=== PATIENT | male | born 1940 | race Caucasian/White ===

== ENCOUNTER 2017-01-21 05:17 | Inpatient (IN) | payer MEDICARE ==
[2017-01-21] VITALS (7 sets, daily range): BP systolic 133; BP diastolic 77; PULSE 58–84; RESP 16; TEMP 98.1; O2SAT 96–100
[~2017-01-21] VITALS: Ht 182.9 cm; Wt 99.3 kg
[~2017-01-21 05:17] MED LIST: ATOR10TA15 PO; MULT1TAB PO; NIFE30TA61 PO; OMEGCAP19 PO; OMEP40CA2 PO; VITA1000 PO
[2017-01-21] MEDS ORDERED: METOPROLOL TARTRATE 25 MG TAB PO PRN (05:45)
[2017-01-21] MEDS ORDERED: INSULIN HUMAN REGULAR 1,000 UNITS/10 ML VIAL SQ PRN (05:45)
[2017-01-21] MEDS ORDERED: LACTATED RINGER'S 1000 ML IV PRN (05:45)
[2017-01-21] MEDS ORDERED: ceFAZolin 2 GM PREMIX 50 ML IV SCH (05:45)
[2017-01-21] MEDS ORDERED: SODIUM CHLORID 0.9% 500 ML IV PRN (05:45)
[2017-01-21] MEDS ORDERED: POVIDONE IODINE 5% (ANTISEPSIS KIT) 4 APPLICATIONS EACH NARE PRN (05:45)
[2017-01-21] MEDS ORDERED: CHLORHEXIDINE GLUCONATE 2 % 1 PACK (2 CLOTHS) TOPICAL PRN (05:45)
[2017-01-21] MEDS ORDERED: HYDROmorphone HCL PF 2 MG/ML VIAL ONE (06:47)
[2017-01-21] MEDS ORDERED: ACETAMINOPHEN 1000 MG/100 ML VIAL IV ONE (06:47)
[2017-01-21 06:57] LABS: INTERNATIONAL NORMALIZED RATIO 0.9 RATIO; PROTHROMBIN TIME - PATIENT 10.4 SEC (9.8-11.6)
[2017-01-21] MEDS ORDERED: MIDAZOLAM HCL 2 MG/2 ML VIAL ONE (07:26)
[2017-01-21] MEDS ORDERED: DEXAMETHASONE SOD PHOS 4 MG/ML VIAL ONE (07:26)
[2017-01-21] MEDS ORDERED: fentaNYL CITRATE 250 MCG/5 ML AMP ONE ×2 (08:56)
[2017-01-21] MEDS ORDERED: SUFentanil INJ 250 MCG/5 ML AMP ONE (10:03)
[2017-01-21] MEDS ORDERED: VASOPRESSIN INJ 20 UNITS/ML VIAL IV ONE (12:00)
[2017-01-21] MEDS ORDERED: ePHEDrine/NS 25 MG/5 ML SYR IV ONE (12:00)
[2017-01-21] MEDS ORDERED: ONDANSETRON HCL 4 MG/2 ML VIAL IV PUSH ONE (12:00)
[2017-01-21] MEDS ORDERED: PROPOFOL 200 MG/20 ML AMP IV ONE (12:00)
[2017-01-21] MEDS ORDERED: SUFentanil INJ 250 MCG/5 ML AMP IV ONE (12:00)
[2017-01-21] MEDS ORDERED: LACTATED RINGER'S 1000 ML INJ 5,000 ML IV ONE (12:00)
[2017-01-21] MEDS ORDERED: NEOSTIGMINE 3 MG/3 ML SYR IV ONE (12:00)
[2017-01-21] MEDS ORDERED: ceFAZolin 2 GM/50 ML BAG IV ONE (12:00)
[2017-01-21] MEDS ORDERED: PHENYLEPH/NS 1000 MCG/10 ML SYR IV ONE (12:00)
[2017-01-21] MEDS ORDERED: SODIUM CHLORID 0.9% 500 ML INJ 500 ML IV ONE (12:00)
[2017-01-21] MEDS ORDERED: ALBUMIN HUMAN 25% 12.5 GM/50 ML BAGP IV ONE (12:00)
[2017-01-21] MEDS ORDERED: NORMOSOL R INJ 1,000 ML IV ONE (12:00)
[2017-01-21 13:53] LABS: AUTOMATED NEUTROPHIL # 18.5 TH/MM3 (1.8-7.7); BASOPHIL % 0.1 % (0.0-2.0); HEMO FLAGS DIFF FINAL; LYMPH % 5.5 % (9.0-44.0); LYMPHOCYTE # 1.1 TH/MM3 (1.0-4.8); MEAN CELL VOLUME 90.7 FL (80.0-100.0); MEAN CORPUSCULAR HEMOGLOBIN 30.2 PG (27.0-34.0); MEAN CORPUSCULAR HGB CONC 33.3 % (32.0-36.0); MONO % 4.8 % (0.0-8.0); NEUT % 89.6 % (16.0-70.0); PLATELET COUNT 160 TH/MM3 (150-450); RED BLOOD COUNT 3.41 MIL/MM3 (4.50-5.90); RED CELL DISTRIBUTION WIDTH 14.3 % (11.6-17.2); WHITE BLOOD COUNT 20.6 TH/MM3 (4.0-11.0)
[2017-01-21] MEDS ORDERED: *morphine SULFATE 8 MG/ML PERIprocedure ONLY ONE (14:05)
[2017-01-21 14:13] LABS: BICARBONATE 25.2 MEQ/L (21.0-32.0); POTASSIUM 4.8 MEQ/L (3.5-5.1)
[2017-01-21] MEDS ORDERED: *ONDANSETRON 4 MG VIAL PERIprocedural Use ONLY ONE (14:25)
[2017-01-21 14:34] LABS: CALCIUM-PROTEIN CORRECTED 8.9 MG/DL (8.5-10.1)
[2017-01-21] MEDS: SODIUM CHLOR 0.9% 1000 ML INJ 1,000 ML IV SCH ×2 (15:00→23:17)
[2017-01-21] MEDS: ACETAMINOPHEN 1000 MG/100 ML VIAL IV SCH ×2 (15:00→20:12)
--- NOTE | 2017-01-21 15:13 | RADRPT ---
EXAM DATE/TIME: 01/21/2017 14:14 [place] COMPARISON: No previous studies available for comparison. INDICATIONS : Rule out pneumothorax. Post right partial necphrectomy. MEDICAL HISTORY : Hypertension. Gastroesophageal reflux disease. Barretts Syndrome. SURGICAL HISTORY : Cardiac catherization. Hiatel hernia repair with mesh. ENCOUNTER: Initial ACUITY: 1 day PAIN SCORE: 10/10 LOCATION: Bilateral Abdomen. FINDINGS: Significant subcutaneous emphysema neck and chest without pneumothorax. The heart is enlarged.. Oss eous structures are intact. CONCLUSION: Significant subcutaneous interstitial emphysema is present without pneumothorax. Jony Juárez MD FACR on January 21, 2017 at 15:09 Board Certified Radiologist. This report was verified electronically.
[2017-01-21] MEDS ORDERED: DO NOT ADM ANY ANTICOAGULANT DRUGS PRN (15:15)
[2017-01-21] MEDS ORDERED: *PROMETHAZINE 25 MG/ML VIAL PERIprocedural use ONLY ONE (15:30)
--- NOTE | 2017-01-21 15:39 | PD.CONS ---
[facility] Service Critical Care Medicine Consult Requested By Urological Surgery Reason for Consult Critical care management Primary Care Physician David Richards MD History of Present Illness 76 y/o man with recently diagnosed right superior pole kidney mass underwent robotic right kidney resection today. Preop metastatic workup otherwise clean aside from some bilateral parotid gland uptake felt to be benign disease. A previous admission for cardiac symptoms revealed low normal EF and otherwise normal study aside from trace regurgitation both semilunar valves. Review of Systems Constitutional: DENIES: Diaphoretic episodes, Fatigue, Fever, Weight gain, Weight loss, Chills, Dizziness, Change in appetite, Night Sweats Endocrine: DENIES: Heat/cold intolerance, Polydipsia, Polyuria, Polyphagia Ears, nose, mouth, throat: DENIES: Tinnitus, Hearing loss, Vertigo, Nasal discharge, Oral lesions, Throat pain, Hoarseness, Ear Pain, Running Nose, Epistaxis, Sinus Pain, Toothache, Odynophagia Respiratory: DENIES: Apneas, Cough, Snoring, Wheezing, Hemoptysis, Sputum production, Shortness of breath Cardiovascular: DENIES: Chest pain, Palpitations, Syncope, Dyspnea on Exertion , PND, Lower Extremity Edema, Orthopnea, Claudication Gastrointestinal: COMPLAINS OF: Abdominal pain Integumentary: DENIES: Abnormal pigmentation, Nail changes, Pruritus, Rash Hematologic/lymphatic: DENIES: Bruising, Lymphadenopathy Psychiatric: DENIES: Anxiety, Confusion, Mood changes, Depression, Hallucinations, Agitation, Suicidal Ideation, Homicidal Ideation, Delusions ROS Mild abdominal pain. No chest pain or SOB. Past Family Social History Allergies: Coded Allergies: Tetanus Toxoid (Verified Allergy, Severe, 01/20/17) Uncoded Allergies: CHALK (Allergy, Severe, RASH, 01/20/17) Past Medical History [facility] Past Family Social History Allergies: Coded Allergies: Tetanus Toxoid (Verified Allergy, Severe, 01/20/17) Uncoded Allergies: CHALK (Allergy, Severe, RASH, 01/20/17) Past Medical History PAST SURGICAL HISTORY: Cardiac cath Hernia repair Umbilical hernia repair Left knee surgery in 1995 FAMILY HISTORY: Mr. Patel's mother is : Hypertension; Dementia. Mr. Patel's father at age 66: lung ca. Mr. Patel's maternal grandmother is . His maternal grandfather is . His paternal grandmother is . His paternal grandfather is . Mr. Patel has 1 brother who is alive. He has 1 son who is alive: traumatic brain injury after the fall. He has 1 daughter who is alive. lung cancer. 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 Mr. Patel has never smoked. He drinks occasionally. He consumes 2 drinks/day. Mr. Patel reports the following support systems: lives with spouse, significant other, family, or friends, supportive family/friends willing to assist with needs, and adequate transportation available for expected visits. His diet consists of regular meals. He indicates his activity level as: daily activities. ALLERGIES: Tetanus-Diphtheria Toxoids Td resulting in skin rashes/hives (moderate) MEDICATIONS: Omeprazole 1 Capsule (of 40 mg) Capsule Delayed Release Oral daily Physical Exam Vital Signs Vital Signs Date Time Temp Pulse Resp B/P Pulse Ox O2 Delivery O2 Flow Rate FiO2 01/21/17 06:27 98.1 58 16 133/77 100 Physical Exam Gen: Minimal discomfort. Head: Normal. Neck: Supple. Airway widely patent. Lungs: Clear. Normal excursions, no wheezes or crackles. Heart: NL S1S2, no m,r Abdomen: Voluntary guarding, soft. BS few. Extremities: Warm, well perfused. Neuro: Sleepy but wakes easily. Moves 4 limbs. Conversant. Laboratory Laboratory Tests Test 01/21/17 01/21/17 01/21/17 06:15 06:20 13:31 Blood Type B NEGATIVE B NEGATIVE Prothrombin Time 10.4 Prothromb Time International 0.9 Ratio Antibody Screen NEGATIVE Crossmatch Leukocyte-Reduced Red Blood Cells Blood Bank Comment White Blood Count 20.6 Red Blood Count 3.41 Hemoglobin 10.3 Hematocrit 31.0 Mean Corpuscular Volume 90.7 Mean Corpuscular Hemoglobin 30.2 Mean Corpuscular Hemoglobin 33.3 Concent Red Cell Distribution Width 14.3 Platelet Count 160 Mean Platelet Volume 8.5 Neutrophils (%) (Auto) 89.6 Lymphocytes (%) (Auto) 5.5 Monocytes (%) (Auto) 4.8 Eosinophils (%) (Auto) 0.0 Basophils (%) (Auto) 0.1 Neutrophils # (Auto) 18.5 Lymphocytes # (Auto) 1.1 Monocytes # (Auto) 1.0 Eosinophils # (Auto) 0.0 Basophils # (Auto) 0.0 CBC Comment DIFF FINAL Differential Comment Sodium Level 143 Potassium Level 4.8 Chloride Level 110 Carbon Dioxide Level 25.2 Anion Gap 8 Blood Urea Nitrogen 13 Creatinine 1.43 Estimat Glomerular Filtration 48 Rate Random Glucose 170 Calcium Level 7.1 Protein Corrected Calcium 8.9 Total Protein 3.9 Result Diagram: 01/21/17 1331 01/21/17 1331 Imaging CXR: Subcutaneous air left pectoralis region and neck. Lungs fully expanded, clear. Assessment and Plan Assessment and Plan Assessment: 1. Right superior pole renal mass -> resection. Plan: 1. IS q2h. 2. HOB up 30 degrees. 3. Follow renal function closely. 4. Pulse oximetry. 5. Chemical DVT px. 6. SCDs. Overall impression: Stable hemodynamic and respiratory status following right robotic renal resection. Fernando Hoover MD Jan 21, 2017 15:38
[2017-01-21] MEDS: PANTOPRAZOLE SODIUM 40 MG VIAL IV PUSH SCH (16:47)
[2017-01-21] MEDS: DOCUSATE SODIUM 100 MG CAP PO SCH (20:12)
[2017-01-21] MEDS: MORPHINE SULFATE 4 MG/ML INJ IV PUSH PRN ×2 (20:13→21:47)
[2017-01-21] MEDS: ONDANSETRON HCL 4 MG/2 ML VIAL IV PUSH PRN (20:13)
--- NOTE | 2017-01-21 23:00 | EKG ---
Date Performed: 01/21/2017 Time Performed: 06:48:51 PTAGE: 76 years EKG: SINUS BRADYCARDIA BORDERLINE ECG PREVIOUS TRACING : 08/01/2015 09.37 Compared to prior tracing no significant change DOCTOR: Santos Zhao Interpretating Date/Time 01/21/2017 22:59:18
[2017-01-22] VITALS (14 sets, daily range): BP systolic 113–125; BP diastolic 56–61; PULSE 76–100; RESP 19–22; TEMP 98.2–98.4; O2SAT 92–100
[2017-01-22] MEDS: ACETAMINOPHEN 1000 MG/100 ML VIAL IV SCH ×4 (02:07→19:20)
[2017-01-22 05:03] LABS: HEMATOCRIT 30.4 % (39.0-51.0); MEAN CELL VOLUME 90.3 FL (80.0-100.0); MEAN CORPUSCULAR HEMOGLOBIN 30.3 PG (27.0-34.0); MEAN CORPUSCULAR HGB CONC 33.6 % (32.0-36.0); PLATELET COUNT 166 TH/MM3 (150-450); RED BLOOD COUNT 3.37 MIL/MM3 (4.50-5.90); RED CELL DISTRIBUTION WIDTH 14.1 % (11.6-17.2); REVIEW FLAG FINAL; WHITE BLOOD COUNT 12.1 TH/MM3 (4.0-11.0)
[2017-01-22 05:43] LABS: BICARBONATE 27.6 MEQ/L (21.0-32.0); POTASSIUM 4.7 MEQ/L (3.5-5.1)
[2017-01-22] MEDS: ONDANSETRON HCL 4 MG/2 ML VIAL IV PUSH PRN ×3 (05:53→19:20)
[2017-01-22] MEDS: MORPHINE SULFATE 4 MG/ML INJ IV PUSH PRN ×6 (05:54→23:32)
[2017-01-22 06:03] LABS: CALCIUM-PROTEIN CORRECTED 8.5 MG/DL (8.5-10.1)
[2017-01-22] MEDS: SODIUM CHLOR 0.9% 1000 ML INJ 1,000 ML IV SCH ×3 (07:23→23:56)
--- NOTE | 2017-01-22 08:22 | HHI.CCPN ---
Subjective Remarks/Hospital Course 76 y/o man with recently diagnosed right superior pole kidney mass underwent robotic right kidney resection today. Preop metastatic workup otherwise clean aside from some bilateral parotid gland uptake felt to be benign disease. A previous admission for cardiac symptoms revealed low normal EF and otherwise normal study aside from trace regurgitation both semilunar valves. 01/22: Complains of shoulder pain; probably referred from diaphragm. Remains warm and well perfused. Hgb stable. Objective Vital Signs Date Time Temp Pulse Resp B/P Pulse Ox O2 Delivery O2 Flow Rate FiO2 01/22/17 08:01 92 21 01/22/17 06:00 79 01/21/17 17:50 Room Air 01/21/17 16:06 4.00 01/21/17 15:30 97.4 15 103/59 Intake and Output 01/21/17 01/21/17 01/22/17 08:00 16:00 00:00 Intake Total 6000 ml 877 ml Output Total 1850 ml 275 ml Balance 4150 ml 602 ml Result Diagram: 01/22/17 0424 01/22/17 0417 Imaging CXR: Subcutaneous air left pectoralis region and neck. Lungs fully expanded, clear. Objective Remarks Gen: Shoulder discomfort. Head: Normal. Neck: Supple. Airway widely patent. Lungs: Clear. Normal excursions, no wheezes or crackles. Heart: NL S1S2, no m,r Abdomen: Voluntary guarding, soft. BS present. Extremities: Warm, well perfused. Neuro: Anxious. Conversant. Moves 4 limbs. A/P Assessment and Plan Assessment: 1. Right superior pole renal mass -> resection. Plan: 1. IS q2h. 2. HOB up 30 degrees. 3. Follow renal function closely. 4. Pulse oximetry. 5. Chemical DVT px. 6. SCDs. Overall impression: Stable hemodynamic and respiratory status following right robotic renal resection. Well hydrated. Fernando Hoover MD Jan 22, 2017 08:22
[2017-01-22] MEDS: DOCUSATE SODIUM 100 MG CAP PO SCH ×2 (08:42→19:20)
[2017-01-22] MEDS: PANTOPRAZOLE SODIUM 40 MG VIAL IV PUSH SCH (14:22)
--- NOTE | 2017-01-22 16:59 | HHI.PR ---
Subjective Patient symptoms today c/o crampy abdominal pain. Denies nausea, vomiting flatus. Has not been OOB. Denies CP/SOB/F/C. Has had some sips of water. on CPAP Objective Vital Signs Vital Signs Date Time Temp Pulse Resp B/P Pulse Ox O2 Delivery O2 Flow Rate FiO2 01/22/17 14:00 95 01/22/17 12:00 85 01/22/17 12:00 98.2 76 19 121/61 92 01/22/17 10:00 85 01/22/17 08:01 92 21 01/22/17 08:00 85 01/22/17 06:00 79 01/22/17 04:00 84 01/22/17 02:00 82 01/22/17 00:00 82 01/21/17 22:00 78 01/21/17 20:00 81 01/21/17 19:40 96 21 01/21/17 18:00 84 01/21/17 17:50 95 Room Air Intake & Output 01/22/17 01/22/17 07:00 19:00 Intake Total 2532 ml 1310 ml Output Total 575 ml 350 ml Balance 1957 ml 960 ml Intake Oral 100 ml IV Total 2532 ml 1210 ml Output Urine Total 575 ml 350 ml Result Diagram: 01/22/17 0424 01/22/17 0417 Objective Remarks NAD. A/O x 3 non-labored respirations RRR abd soft, distended, non tender. dressing dry, inc c/d/i Lee draining dark yellow urine Ext NT. no c/c/e Medications and IVs Current Medications Medications (Trade) Dose Ordered Sig/Sukhjinder Route Start Time Stop Time Status Last Admin Lactated Ringer's 1,000 ml @ 30 mls/hr Q24H PRN IV 01/21/17 05:45 01/24/17 05:44 01/21/17 06:30 (NS 500 ml Inj) 500 ml @ 30 mls/hr [id number] PRN IV 01/21/17 05:45 01/24/17 05:44 (Morphine Inj) 4 mg Q3H PRN IV PUSH 01/21/17 13:00 01/22/17 15:28 (Colace) 100 mg BID PO 01/21/17 21:00 01/22/17 08:42 (Ofirmev Inj) 1,000 mg Q6H IV 01/21/17 14:00 01/22/17 14:21 (Roxicodone) 10 mg Q4H PRN PO 01/21/17 13:00 01/22/17 07:23 (Roxicodone) 5 mg Q4H PRN PO 01/21/17 13:00 01/22/17 01:14 (Protonix Inj) 40 mg Q24H IV PUSH 01/21/17 14:00 01/22/17 14:22 Ondansetron HCl 4 mg 4 mg Q6HR PRN IV PUSH 01/21/17 13:00 01/22/17 12:29 Cefazolin Sodium 1000 mg/Sodium Chloride 100 ml @ 200 mls/hr Q8H IV 01/21/17 16:00 01/22/17 15:03 (NS 1000 ml Inj) 1,000 ml @ 125 mls/hr Q8H IV 01/21/17 15:00 01/22/17 15:21 Assessment and Plan Assessment and Plan Right Robotic Radical Nephrectomy, complicated, POD#1 -continue current pain control -Hgb stable. Hemodynamically stable. -On CPAP. Incentive Spirometry. -Cr elevated as expected. UOP picking up. Continue IVF. Likely d/c lee in A.M. -Clears. Zofran as needed. GI prophylaxis. -WBC down. afebrile. On Ancef. -PT/OT. Ambulate TID -likely transfer out of ICU tomorrow. Lenin Cooper MD Jan 22, 2017 16:59
[2017-01-23] VITALS (13 sets, daily range): BP systolic 108–136; BP diastolic 57–70; PULSE 86–108; RESP 17–23; TEMP 98.8–100.8; O2SAT 91–100
[2017-01-23] MEDS: ACETAMINOPHEN 1000 MG/100 ML VIAL IV SCH ×4 (02:11→20:12)
[2017-01-23 04:22] LABS: BICARBONATE 24.9 MEQ/L (21.0-32.0); POTASSIUM 4.5 MEQ/L (3.5-5.1)
[2017-01-23 04:34] LABS: CALCIUM-PROTEIN CORRECTED 7.9 MG/DL (8.5-10.1)
[2017-01-23] MEDS: ONDANSETRON HCL 4 MG/2 ML VIAL IV PUSH PRN ×3 (05:25→20:12)
[2017-01-23] MEDS: MORPHINE SULFATE 4 MG/ML INJ IV PUSH PRN ×3 (05:25→23:19)
[2017-01-23] MEDS: DOCUSATE SODIUM 100 MG CAP PO SCH ×2 (08:16→20:12)
[2017-01-23] MEDS: SODIUM CHLOR 0.9% 1000 ML INJ 1,000 ML IV SCH ×3 (08:16→23:32)
--- NOTE | 2017-01-23 08:43 | HHI.CCPN ---
Subjective Remarks/Hospital Course 76 y/o man with recently diagnosed right superior pole kidney mass underwent robotic right kidney resection today. Preop metastatic workup otherwise clean aside from some bilateral parotid gland uptake felt to be benign disease. A previous admission for cardiac symptoms revealed low normal EF and otherwise normal study aside from trace regurgitation both semilunar valves. 01/22: Complains of shoulder pain; probably referred from diaphragm. Remains warm and well perfused. Hgb stable. 01/23: Breathing comfortably. Creatinine rise is expected after nephrectomy. Patient being mobilized. He has been on protonix iv but is convinced he needs omeprazole po, will change for him. He is concerned about Keith's. Objective Vital Signs Date Time Temp Pulse Resp B/P Pulse Ox O2 Delivery O2 Flow Rate FiO2 01/23/17 06:00 91 01/23/17 04:00 98.9 21 113/57 100 01/22/17 19:14 21 01/21/17 17:50 Room Air 01/21/17 16:06 4.00 Intake and Output 01/22/17 01/22/17 01/23/17 08:00 16:00 00:00 Intake Total 1655 ml 1310 ml 1123 ml Output Total 300 ml 350 ml 275 ml Balance 1355 ml 960 ml 848 ml Result Diagram: 01/22/17 0424 01/23/17 0327 Imaging CXR: Subcutaneous air left pectoralis region and neck. Lungs fully expanded, clear. Objective Remarks Gen: Anxious. Head: Normal. Neck: Supple. Airway widely patent. Lungs: Clear. Normal excursions, no wheezes or crackles. Heart: NL S1S2, no m,r. No JVD. Abdomen: Voluntary guarding minimal, soft. BS present. Extremities: Warm, well perfused. Neuro: Anxious. Conversant. Moves 4 limbs. O X 3. A/P Assessment and Plan Assessment: 1. Right superior pole renal mass -> right radical nephrectomy. Plan: 1. IS q2h. 2. HOB up 30 degrees. 3. Follow renal function closely. 4. Pulse oximetry. 5. Chemical DVT px. 6. SCDs. 7. CPAP hs. Overall impression: Stable hemodynamic and respiratory status following right robotic renal resection. Well hydrated. To floor anytime. Fernando Hoover MD Jan 23, 2017 08:42
[2017-01-23] MEDS: PANTOPRAZOLE SOD 40 MG DELAYED RELEASE TAB PO SCH (08:49)
[2017-01-23] MEDS ORDERED: METOCLOPRAMIDE HCL 10 MG/2 ML VIAL IV ONE (23:00)
[2017-01-24] VITALS (7 sets, daily range): BP systolic 117–175; BP diastolic 63–79; PULSE 81–113; RESP 18–20; TEMP 97.8–99.9; O2SAT 92–99
[2017-01-24] MEDS: ACETAMINOPHEN 1000 MG/100 ML VIAL IV SCH ×4 (01:59→21:22)
[2017-01-24] MEDS: ONDANSETRON HCL 4 MG/2 ML VIAL IV PUSH PRN ×3 (01:59→16:42)
[2017-01-24] MEDS: METOCLOPRAMIDE HCL 10 MG/2 ML VIAL IV PRN ×3 (05:35→21:34)
[2017-01-24 07:59] LABS: BICARBONATE 24.3 MEQ/L (21.0-32.0); POTASSIUM 4.6 MEQ/L (3.5-5.1)
[2017-01-24] MEDS: SODIUM CHLOR 0.9% 1000 ML INJ 1,000 ML IV SCH ×3 (08:14→23:15)
[2017-01-24] MEDS: PANTOPRAZOLE SOD 40 MG DELAYED RELEASE TAB PO SCH (08:18)
[2017-01-24] MEDS: DOCUSATE SODIUM 100 MG CAP PO SCH ×2 (08:20→21:22)
--- NOTE | 2017-01-24 10:19 | HHI.PR ---
Subjective Patient symptoms today nauseous overnight. improved this morning, but still dry heaving. Denies flatus. Up to chair, bathroom. Voiding well. Denies fevers, chills, chest pain, shortness of breath. Objective Vital Signs Vital Signs Date Time Temp Pulse Resp B/P Pulse Ox O2 Delivery O2 Flow Rate FiO2 01/24/17 08:24 97.8 81 18 141/76 99 01/24/17 06:07 83 01/24/17 05:00 98.6 91 18 117/65 94 01/23/17 22:00 99.7 01/23/17 20:00 100.8 108 20 130/70 95 01/23/17 17:56 17 97 01/23/17 16:39 99.0 100 17 136/69 91 01/23/17 14:00 87 01/23/17 12:00 93 01/23/17 12:00 99.2 93 23 108/59 95 01/23/17 11:15 94 Intake & Output 01/24/17 01/24/17 07:00 19:00 Intake Total 1800 ml Output Total 600 ml Balance 1200 ml IV Total 1800 ml Output Urine Total 600 ml Result Diagram: 01/22/17 0424 01/24/17 0557 Objective Remarks NAD. A/O x 3 non-labored respirations RRR abd soft, distended, non tender. dressing dry, inc c/d/i Ext NT. no c/c/e Medications and IVs Current Medications Medications (Trade) Dose Ordered Sig/Sukhjinder Route Start Time Stop Time Status Last Admin (Morphine Inj) 4 mg Q3H PRN IV PUSH 01/21/17 13:00 01/23/17 23:19 (Colace) 100 mg BID PO 01/21/17 21:00 01/23/17 20:12 (Ofirmev Inj) 1,000 mg Q6H IV 01/21/17 14:00 01/24/17 08:19 (Roxicodone) 10 mg Q4H PRN PO 01/21/17 13:00 01/24/17 09:40 (Roxicodone) 5 mg Q4H PRN PO 01/21/17 13:00 01/22/17 20:58 Ondansetron HCl 4 mg 4 mg Q6HR PRN IV PUSH 01/21/17 13:00 01/24/17 09:41 Cefazolin Sodium 1000 mg/Sodium Chloride 100 ml @ 200 mls/hr Q8H IV 01/21/17 16:00 01/24/17 08:14 (NS 1000 ml Inj) 1,000 ml @ 125 mls/hr Q8H IV 01/21/17 15:00 01/24/17 08:14 (Protonix) 40 mg DAILY PO 01/23/17 09:00 01/24/17 08:18 (Reglan Inj) 5 mg Q6H PRN IV 01/23/17 23:00 01/24/17 05:35 Assessment and Plan Assessment and Plan Right Robotic Radical Nephrectomy, complicated, POD#3 -limit narcotic use. -keep NPO for now. Once bowel function improves, will advance diet. -Reglan added for nausea. on Protonix. -Renal Function improving.Voiding on own -Ambulate, IS. Lenin Cooper MD Jan 24, 2017 10:19
[2017-01-24] MEDS: MORPHINE SULFATE 4 MG/ML INJ IV PUSH PRN ×2 (13:02→16:41)
[2017-01-25] VITALS (7 sets, daily range): BP systolic 120–151; BP diastolic 58–80; PULSE 68–107; RESP 18–20; TEMP 97.4–100; O2SAT 91–97
[2017-01-25] MEDS: ACETAMINOPHEN 1000 MG/100 ML VIAL IV SCH ×4 (02:20→21:54)
[2017-01-25] MEDS: METOCLOPRAMIDE HCL 10 MG/2 ML VIAL IV PRN ×3 (02:21→21:54)
[2017-01-25] MEDS: ONDANSETRON HCL 4 MG/2 ML VIAL IV PUSH PRN ×2 (06:17→14:13)
[2017-01-25] MEDS: SODIUM CHLOR 0.9% 1000 ML INJ 1,000 ML IV SCH ×3 (07:00→21:55)
--- NOTE | 2017-01-25 08:36 | HHI.PR ---
Subjective Patient symptoms today less nauseous. Denies flatus. pain controlled. OOB but has not walked hallways. Denies fevers, chills. Objective Vital Signs Vital Signs Date Time Temp Pulse Resp B/P Pulse Ox O2 Delivery O2 Flow Rate FiO2 01/25/17 08:20 99.4 98 20 151/69 93 01/25/17 04:16 100.0 94 20 131/63 95 01/25/17 03:34 90 01/25/17 00:18 98.9 107 20 146/69 91 01/24/17 20:00 99.9 113 20 175/79 96 01/24/17 17:22 82 01/24/17 16:44 98.7 84 19 134/69 97 01/24/17 12:08 98.8 91 19 133/63 92 Intake & Output 01/25/17 01/25/17 06:59 18:59 Intake Total 1537 ml Output Total 800 ml Balance 737 ml Intake Oral 32 ml IV Total 1505 ml Output Urine Total 800 ml # Bowel Movements 0 Result Diagram: 01/22/17 0424 01/24/17 0557 Objective Remarks NAD. A/O x 3 non-labored respirations RRR abd soft, less distended, non tender. inc c/d/i Ext NT. 1+ edema bilaterally, likely dependent. Medications and IVs Current Medications Medications (Trade) Dose Ordered Sig/Sukhjinder Route Start Time Stop Time Status Last Admin (Morphine Inj) 4 mg Q3H PRN IV PUSH 01/21/17 13:00 01/24/17 16:41 (Colace) 100 mg BID PO 01/21/17 21:00 01/24/17 21:22 (Ofirmev Inj) 1,000 mg Q6H IV 01/21/17 14:00 01/25/17 02:20 (Roxicodone) 10 mg Q4H PRN PO 01/21/17 13:00 01/25/17 02:21 (Roxicodone) 5 mg Q4H PRN PO 01/21/17 13:00 01/25/17 06:17 Ondansetron HCl 4 mg 4 mg Q6HR PRN IV PUSH 01/21/17 13:00 01/25/17 06:17 (NS 1000 ml Inj) 1,000 ml @ 125 mls/hr Q8H IV 01/21/17 15:00 01/25/17 07:00 (Protonix) 40 mg DAILY PO 01/23/17 09:00 01/24/17 08:18 (Reglan Inj) 5 mg Q6H PRN IV 01/23/17 23:00 01/25/17 02:21 (Dulcolax Supp) 10 mg ONCE ONCE RECTAL 01/25/17 08:30 01/25/17 08:31 UNV Assessment and Plan Assessment and Plan Right Robotic Radical Nephrectomy, complicated, POD#4 -limit narcotic use. -clear liquids. Dulcolax supp x 1 -Reglan added for nausea. on Protonix. -Renal Function improving.Voiding on own -Ambulate, IS. Lenin Cooper MD Jan 25, 2017 08:36
[2017-01-25] MEDS ORDERED: BISACODYL 10 MG SUPP RECTAL ONE (09:00)
[2017-01-25] MEDS: DOCUSATE SODIUM 100 MG CAP PO SCH ×2 (09:24→21:54)
[2017-01-25] MEDS: PANTOPRAZOLE SOD 40 MG DELAYED RELEASE TAB PO SCH (09:24)
[2017-01-25 10:17] LABS: BICARBONATE 22.6 MEQ/L (21.0-32.0); POTASSIUM 4.3 MEQ/L (3.5-5.1)
[2017-01-25 10:32] LABS: CALCIUM-PROTEIN CORRECTED 8.6 MG/DL (8.5-10.1)
[2017-01-26] VITALS (8 sets, daily range): BP systolic 120–173; BP diastolic 59–79; PULSE 79–106; RESP 20; TEMP 96.6–99.8; O2SAT 96–100
[2017-01-26] MEDS: ONDANSETRON HCL 4 MG/2 ML VIAL IV PUSH PRN ×2 (01:51→08:17)
[2017-01-26] MEDS: ACETAMINOPHEN 1000 MG/100 ML VIAL IV SCH ×4 (01:51→20:51)
[2017-01-26] MEDS: SODIUM CHLOR 0.9% 1000 ML INJ 1,000 ML IV SCH ×2 (06:19→14:32)
[2017-01-26] MEDS: PANTOPRAZOLE SOD 40 MG DELAYED RELEASE TAB PO SCH (08:21)
[2017-01-26] MEDS: DOCUSATE SODIUM 100 MG CAP PO SCH ×2 (08:22→20:51)
[2017-01-26] MEDS: METOCLOPRAMIDE HCL 10 MG/2 ML VIAL IV PRN (11:44)
--- NOTE | 2017-01-26 12:24 | HHI.PR ---
Subjective Patient symptoms today passed some liquid stool, some flatus but not much. Abdominal pain controlled. Has not ambulated in hallways. Denies fevers, chills. Still with nausea but holding clears down. Objective Vital Signs Vital Signs Date Time Temp Pulse Resp B/P Pulse Ox O2 Delivery O2 Flow Rate FiO2 01/26/17 09:38 137/65 01/26/17 08:05 79 01/26/17 08:05 96 Room Air 01/26/17 08:00 99.8 106 20 173/79 96 01/26/17 04:00 Room Air 01/26/17 04:00 97.3 88 20 120/59 99 01/26/17 00:00 Room Air 01/26/17 00:00 96.6 96 20 125/65 99 01/25/17 21:30 100.0 68 20 125/80 94 01/25/17 20:00 Room Air 01/25/17 16:24 98.3 95 18 120/58 95 01/25/17 15:13 17 01/25/17 14:42 19 Intake & Output 01/26/17 01/26/17 07:00 19:00 Intake Total 2171 ml Output Total 0 ml Balance 2171 ml Intake Oral 1000 ml IV Total 1171 ml Output Urine Total 0 ml # Voids 1 # Bowel Movements 1 Result Diagram: 01/22/17 0424 01/25/17 0842 Objective Remarks NAD. A/O x 3 non-labored respirations RRR abd soft, less distended, non tender. inc c/d/i Ext NT. 1+ edema bilaterally, likely dependent. Medications and IVs Current Medications Medications (Trade) Dose Ordered Sig/Sukhjinder Route Start Time Stop Time Status Last Admin (Morphine Inj) 4 mg Q3H PRN IV PUSH 01/21/17 13:00 01/24/17 16:41 (Colace) 100 mg BID PO 01/21/17 21:00 01/26/17 08:22 (Ofirmev Inj) 1,000 mg Q6H IV 01/21/17 14:00 01/26/17 08:22 (Roxicodone) 10 mg Q4H PRN PO 01/21/17 13:00 01/26/17 08:24 (Roxicodone) 5 mg Q4H PRN PO 01/21/17 13:00 01/25/17 06:17 Ondansetron HCl 4 mg 4 mg Q6HR PRN IV PUSH 01/21/17 13:00 01/26/17 08:17 (NS 1000 ml Inj) 1,000 ml @ 125 mls/hr Q8H IV 01/21/17 15:00 01/25/17 21:55 (Protonix) 40 mg DAILY PO 01/23/17 09:00 01/26/17 08:21 (Reglan Inj) 5 mg Q6H PRN IV 01/23/17 23:00 01/26/17 11:44 Assessment and Plan Assessment and Plan Right Robotic Radical Nephrectomy, complicated, POD#5 -limit narcotic use. -full liquid diet -Reglan added for nausea. on Protonix. -Check BMP, Mg in A.M. -Ambulate, IS. Lenin Cooper MD Jan 26, 2017 12:24
[2017-01-26] MEDS: MORPHINE SULFATE 4 MG/ML INJ IV PUSH PRN (17:04)
[2017-01-27] VITALS (8 sets, daily range): BP systolic 149–181; BP diastolic 72–85; PULSE 86–105; RESP 18–22; TEMP 97–100.3; O2SAT 94–99
[2017-01-27] MEDS: ACETAMINOPHEN 1000 MG/100 ML VIAL IV SCH (01:28)
[2017-01-27] MEDS: SODIUM CHLOR 0.9% 1000 ML INJ 1,000 ML IV SCH ×4 (01:29→21:54)
--- NOTE | 2017-01-27 07:23 | HHI.PR ---
Subjective Patient symptoms today feels better. had 2 liquid BMs, passed flatus. Ambulating in hallways. Denies fevers, chills, chest pain, SOB. Objective Vital Signs Vital Signs Date Time Temp Pulse Resp B/P Pulse Ox O2 Delivery O2 Flow Rate FiO2 01/27/17 04:00 98.3 90 20 156/75 96 01/27/17 03:50 105 01/27/17 00:00 99.6 98 20 149/76 98 01/26/17 22:06 Room Air 01/26/17 20:00 99.5 105 20 165/77 96 01/26/17 16:00 99.2 93 20 158/73 98 01/26/17 12:00 98.7 88 20 144/66 100 01/26/17 09:38 137/65 01/26/17 08:05 79 01/26/17 08:05 96 Room Air 01/26/17 08:00 99.8 106 20 173/79 96 Intake & Output 01/27/17 01/27/17 07:00 19:00 Intake Total 240 ml Output Total 2 ml Balance 238 ml Intake Oral 240 ml Stool Total 2 ml # Voids 3 Result Diagram: 01/25/17 0842 Objective Remarks NAD. A/O x 3 non-labored respirations RRR abd soft, less distended, non tender. inc c/d/i Ext NT. 1+ edema bilaterally, likely dependent. Medications and IVs Current Medications Medications (Trade) Dose Ordered Sig/Sukhjinder Route Start Time Stop Time Status Last Admin (Morphine Inj) 4 mg Q3H PRN IV PUSH 01/21/17 13:00 01/26/17 17:04 (Colace) 100 mg BID PO 01/21/17 21:00 01/26/17 08:22 (Ofirmev Inj) 1,000 mg Q6H IV 01/21/17 14:00 01/27/17 01:28 (Roxicodone) 10 mg Q4H PRN PO 01/21/17 13:00 01/26/17 08:24 (Roxicodone) 5 mg Q4H PRN PO 01/21/17 13:00 01/26/17 20:50 Ondansetron HCl 4 mg 4 mg Q6HR PRN IV PUSH 01/21/17 13:00 01/26/17 08:17 (NS 1000 ml Inj) 1,000 ml @ 125 mls/hr Q8H IV 01/21/17 15:00 01/27/17 01:29 (Protonix) 40 mg DAILY PO 01/23/17 09:00 01/26/17 08:21 (Reglan Inj) 5 mg Q6H PRN IV 01/23/17 23:00 01/26/17 11:44 Assessment and Plan Assessment and Plan Right Robotic Radical Nephrectomy, complicated, POD#6 -Regular diet. -Ambulate -d/c IV pain meds -GI prophylaxis -probable d/c tomorrow. Lenin Cooper MD Jan 27, 2017 07:23
[2017-01-27] MEDS ORDERED: oxyCODONE/ACETAMINOPHEN 5 MG/325 MG TAB PO PRN ×2 (07:30)
[2017-01-27 07:50] LABS: BICARBONATE 23.6 MEQ/L (21.0-32.0); MAGNESIUM 2.1 MG/DL (1.5-2.5)
[2017-01-27] MEDS: DOCUSATE SODIUM 100 MG CAP PO SCH ×2 (08:38→21:05)
[2017-01-27] MEDS: PANTOPRAZOLE SOD 40 MG DELAYED RELEASE TAB PO SCH (08:39)
[2017-01-27] MEDS: ONDANSETRON HCL 4 MG/2 ML VIAL IV PUSH PRN (18:26)
[2017-01-27] MEDS: METOCLOPRAMIDE HCL 10 MG/2 ML VIAL IV PRN (21:04)
[2017-01-27] MEDS: NIFEdipine 30 MG SUSTAINED RELEASE TAB PO SCH (21:53)
[2017-01-28] VITALS (8 sets, daily range): BP systolic 117–155; BP diastolic 55–70; PULSE 88–104; RESP 18–20; TEMP 98.8–100.1; O2SAT 93–97
[2017-01-28] MEDS: DOCUSATE SODIUM 100 MG CAP PO SCH ×2 (08:02→20:09)
[2017-01-28] MEDS: PANTOPRAZOLE SOD 40 MG DELAYED RELEASE TAB PO SCH (08:02)
[2017-01-28] MEDS: NIFEdipine 30 MG SUSTAINED RELEASE TAB PO SCH (08:03)
[2017-01-28] MEDS ORDERED: HYDR-3533 PO (08:43)
[2017-01-28] MEDS ORDERED: ACETAMINOPHEN/HYDROcodone 325 MG/5 MG TAB PO PRN ×2 (08:45)
[2017-01-28] MEDS ORDERED: NIFEdipine 30 MG SUSTAINED RELEASE TAB PO SCH (09:00)
[2017-01-28] MEDS: SODIUM CHLOR 0.9% 1000 ML INJ 1,000 ML IV SCH (18:49)
[2017-01-28] MEDS: METOCLOPRAMIDE HCL 10 MG/2 ML VIAL IV PRN (20:09)
[2017-01-28] MEDS: ATORVASTATIN 10 MG TAB PO SCH (20:09)
[2017-01-29] VITALS (8 sets, daily range): BP systolic 120–163; BP diastolic 60–78; PULSE 83–103; RESP 17–22; TEMP 98–100.6; O2SAT 93–98
[2017-01-29] MEDS: METOCLOPRAMIDE HCL 10 MG/2 ML VIAL IV PRN (01:36)
[2017-01-29] MEDS: PANTOPRAZOLE SOD 40 MG DELAYED RELEASE TAB PO SCH (09:42)
[2017-01-29] MEDS: DOCUSATE SODIUM 100 MG CAP PO SCH ×2 (09:42→22:00)
[2017-01-29] MEDS: NIFEdipine 30 MG SUSTAINED RELEASE TAB PO SCH (09:43)
--- NOTE | 2017-01-29 12:40 | HHI.PR ---
Subjective Patient symptoms today feels better today. much less nausea. passing flatus, liquid stool. Ambulating well. Appetite slowly returning. Feels less swollen. Objective Vital Signs Vital Signs Date Time Temp Pulse Resp B/P Pulse Ox O2 Delivery O2 Flow Rate FiO2 01/29/17 12:25 98.0 89 20 163/78 97 01/29/17 10:59 Room Air 01/29/17 08:24 83 01/29/17 08:21 98.6 93 22 156/74 95 01/29/17 06:11 99.0 87 17 149/71 96 01/29/17 00:00 100.6 103 20 120/60 93 01/28/17 21:48 96 01/28/17 20:00 99.9 104 20 141/70 94 01/28/17 20:00 Room Air 01/28/17 16:30 98.8 92 18 138/67 97 01/28/17 12:42 99.1 99 18 117/55 93 Result Diagram: 01/27/17 0639 Objective Remarks NAD. A/O x 3 non-labored respirations RRR abd soft,distended, non tender. inc c/d/i Ext NT. 1+ edema bilaterally, likely dependent. Medications and IVs Current Medications Medications (Trade) Dose Ordered Sig/Sukhjinder Route Start Time Stop Time Status Last Admin (Colace) 100 mg BID PO 01/21/17 21:00 01/29/17 09:42 (Protonix) 40 mg DAILY PO 01/23/17 09:00 01/29/17 09:42 (Reglan Inj) 5 mg Q6H PRN IV 01/23/17 23:00 01/29/17 01:36 Nifedipine 30 mg 30 mg DAILY PO 01/27/17 21:37 01/29/17 09:43 (NS 1000 ml Inj) 1,000 ml @ 50 mls/hr Q20H IV 01/27/17 22:00 01/27/17 21:54 (Lipitor) 10 mg HS PO 01/28/17 21:00 01/28/17 20:09 ([place] 5-325 Mg) 2 tab Q4H PRN PO 01/28/17 08:45 ([place] 5-325 Mg) 1 tab Q4H PRN PO 01/28/17 08:45 Assessment and Plan Assessment and Plan Right Robotic Radical Nephrectomy, complicated, POD#8 -Regular diet. -Ambulate -Stop Reglan. -GI prophylaxis -probable d/c tomorrow. Lenin Cooper MD Jan 29, 2017 12:39
[2017-01-29] MEDS ORDERED: DOCU1CAP39 PO (12:41)
[2017-01-29] MEDS ORDERED: HYDR-3516 PO (12:41)
[2017-01-29] MEDS ORDERED: METOCLOPRAMIDE HCL 10 MG TAB PO PRN (12:45)
[2017-01-29] MEDS: SODIUM CHLOR 0.9% 1000 ML INJ 1,000 ML IV SCH (13:19)
[2017-01-29] MEDS: ATORVASTATIN 10 MG TAB PO SCH (22:00)
[2017-01-30] VITALS: BP 157/73; PULSE 95; RESP 20; TEMP 100.3; O2SAT 94
[2017-01-30 04:00] VITALS: BP 167/80; PULSE 86; RESP 20; TEMP 98.7; O2SAT 98
[2017-01-30 08:00] VITALS: BP 149/75; PULSE 79; PULSE 92; RESP 20; TEMP 97.9; O2SAT 97
[2017-01-30] MEDS: NIFEdipine 30 MG SUSTAINED RELEASE TAB PO SCH (09:34)
[2017-01-30] MEDS: DOCUSATE SODIUM 100 MG CAP PO SCH (09:34)
[2017-01-30] MEDS: PANTOPRAZOLE SOD 40 MG DELAYED RELEASE TAB PO SCH (09:34)
[2017-01-30 12:00] VITALS: BP 145/72; PULSE 78; RESP 20; TEMP 98.3; O2SAT 97
[2017-01-30] MEDS ORDERED: METO10TA PO (12:58)
--- NOTE | 2017-01-30 13:00 | HHI.FF ---
Face to Face Verification Diagnosis: (1) Kidney carcinoma Home Health Aide Order: To Assist In: Bathing and personal care I have seen patient David Patel on 01/30/17. My clinical findings support the need for the requested home health care services because: Limited ability to care for self I certify that my clinical findings support that this patient is homebound because: Post-op weakness Lenin Cooper MD Jan 30, 2017 13:00
--- NOTE | 2017-02-11 06:37 | MP ---
cc: NELA MAO MD DATE OF OPERATION 01/21/2017 PREOPERATIVE DIAGNOSIS Upper pole right renal mass. POSTOPERATIVE DIAGNOSIS Upper pole right renal mass. PROCEDURE PERFORMED Right robotic radical nephrectomy. SURGEON MD Kenneth ANESTHESIA General. COMPLICATIONS None. PREOPERATIVE ANTIBIOTICS Ancef 2 grams IV. DRAINS 16-Slovak Cabezas catheter to gravity drainage. SPECIMENS 1. Right kidney for permanent. 2. Perinephric fat. BLOOD LOSS 1500 mL. DISPOSITION Stable to ICU. INDICATIONS The patient is a 76-year-old male who was found to have an incidental right upper pole renal mass. Treatment options were discussed including active surveillance versus partial nephrectomy, both laparoscopic and open versus percutaneous cryoablation. The advantages, disadvantages, potential side effects and complications of each procedure were discussed in great detail with the patient. After careful thought, the patient elected to proceed with robotic partial nephrectomy, possible robotic radical nephrectomy due to the location and size of the tumor. The risks, benefits and alternatives of this procedure were explained extensively to this patient including the risk of renal failure, conversion to open, loss of potential kidney and potential need for dialysis and blood transfusion and the patient elected to proceed. Informed consent was obtained. DETAILS OF PROCEDURE The patient was properly identified, brought back to the operating room, laid supine on the operating room table. Proper time-out was performed under the direction of Anesthesiology. The patient was intubated and induced under general aesthetic. Preoperative anesthesia in the form of Ancef 2 grams IV were given one hour prior to start of the procedure. The patient was then placed in the left lateral decubitus position with right side up. All pressure points were padded. Cabezas catheter was placed in a sterile technique. He was then prepped and draped in normal sterile surgical fashion. A stab incision was made just superior and lateral to the umbilicus. Using a Veress needle, then were able to gain insufflation with pneumoperitoneum up to 15 mmHg. At this time the stab incision was extended to approximately 1.5 cm. Under direct visualization with a 10-mm laparoscope, I then passed a 12-mm cannula into the abdominal cavity. The abdominal cavity was inspected. There was no evidence of intraabdominal injury. However, the patient had significant adhesions up near his gallbladder and liver. However, despite these adhesions, I was able to place the robotic ports under direct visualization without any issues. Two 8-mm robotic working ports were triangulated off of the robotic camera port under direct visualization. A liver retractor, 5-mm port was then placed in the midline just under the xiphoid process. Two 12-mm blood donor unit assistant ports were then placed along the midline, one superior to the umbilicus, one inferior to the umbilicus for a total of six ports. At this time the robot was then brought up into position. I began by taking down the adhesions with cold cut scissors. This then made visualization much easier. However, the patient had a significant amount of fat surrounding the kidney on first glance. At this time under direct visualization I was able to pass the liver retractor to retract the liver cephalad. I next then reflected the colon medially by taking down the white line of Toldt. This exposed the retroperitoneum. I then carefully kocherized the duodenum. However, this was quite difficult due to the patient with significant amount of fat surrounding the kidney as it did make the planes very difficult. Once I kocherized the duodenum, I did visualize the gonadal vein. Inferior to the gonadal vein was the IVC. I then developed a plane between the gonadal vein and IVC, which at this point I was able to see the ureter. The kidney was then were retracted anterior towards the abdominal wall. However, there was not much space due to the amount of fat on the kidney. I carefully marched cephalad up the IVC until I found the attachment of the gonadal vein to the IVC. The gonadal vein was then carefully taken with robotic vessel sealer. It was necessary to take the gonadal vein to necessitate retraction of the kidney itself. As I came up to the hilum, it was quite difficult to navigate. The patient had two arteries and two veins with the arteries being directly posterior to the veins. Due to the amount of fat surrounding the hilum, I was unable to use dissection circumferentially to gain adequate control. At this time I then turned my attention finding the tumor on the kidney itself to see if it was even amenable to a partial nephrectomy. Based on the CAT scan findings, I was concerned that the tumor was near one of the renal veins. As I dissected off the perinephric fat from the kidney, I did come across the tumor that corresponded to the CAT scan. However, it did appear to be sitting right on top of a renal vein. Due to this issue, I did not think it was possible to remove the tumor and leave the rest of the kidney volume without compromising the blood supply to the kidney. Therefore, as the patient understood preoperatively, decision was to take the entire kidney. I then turned my attention back to the renal hilum. Due to the amount of fat and lack of retraction around the kidney I was not satisfied. I was able to get a plane and get the stapler around the renal vein and artery. Therefore I then used the robotic Hem-o-hillary clip shuttlecock assembler to apply clips to the vessels. The two arteries were first ligated with two Hem-o-hillary clips both proximally and distally and divided in between. This helped to control the blood supply to the kidney. The inferior vein was then ligated next with two clips proximal and distal to the vein and then it was divided itself. The more superior vein was slightly more difficult due to the potential short adrenal vein near this location as well. However, after careful dissection, I was able to again develop a plane which at this time could use the endovascular GI stapler. This was carefully passed over the vein and stapled by my blood donor unit assistant. At this time there was some bleeding that was seen but it appeared to be venous in nature. The insufflation was then turned up to 20 mmHg and pressure was applied in this area gently for about five minutes. At this time I then removed the lateral attachments to the kidney and carefully dissected bluntly off the superior portion of the liver. However, due to the fat I was unable to maneuver the camera over the superior aspect of the kidney to adequately see visualization. Visualization was quite difficult. At this point I did not feel that I was able to get the rest of the kidney removed laparoscopically. I was also concerned that there was some venous bleeding near the hilum and I was concerned one of the clips did not hold. Therefore, with the patient being stable, I undocked the robot. I then extend in the subcostal robotic port incision to a half chevron to expose the retroperitoneum. I was able then to get the rest of the kidney out but there was bleeding seen on one of the previously clipped veins. There appeared to be a lumbar vein that was actively bleeding. I was able to carefully get control of this vein and that was able to place a Hem-o-hillary clip across it to stop it from bleeding. I then packed the wound and waited approximately 5 minutes. At this time the patient's blood pressure did drop but with giving several units of blood, albumin and fluid we were able to bring his previous pressure back up and stabilized him. At this time the wound was inspected and appeared to be dry. The IVC was intact from the liver all the way down to the pelvis. There did not appear to be any active bleeding. The hilum was very dry. At this time Evarrest and 3 grams of of Merari were then applied in the renal fossa bed, along the hilum and near the upper portion of the liver for hemostatic purposes. Again the wound appeared to be dry. The patient was stable. At this time the incision was then closed with two separate looped PDS in a running fashion. The skin was then closed with 4-0 Monocryl. All ports were then removed. Skin incisions were closed with 4-0 Monocryl. This concluded the procedure. The patient was extubated and sent to Recovery in stable condition. He was then transferred to the ICU for observation overnight. Sponge and needle count was correct at the end of the case. Nela Mao MD [facility]/PATRICIA /5:18 PM /5:57 AM
== END 2017-01-30 15:29 | disposition home health service (06) | DRG 657 ==
LOC: HSDC 05:17 → HSDI 12:56 → N03B 15:40 → N05A 01-23 15:21
PROVIDERS: ADMIT Urology; ATTEND Urology
PROC: 8E0W4CZ Robotic Assisted Procedure of Trunk Region, Percutaneous Endoscopic Approach (ICD-10-PCS; 2017-01-21)
PROC: 30233N1 Transfusion of Nonautologous Red Blood Cells into Peripheral Vein, Percutaneous Approach (ICD-10-PCS; 2017-01-21)
PROC: 0TT04ZZ Resection of Right Kidney, Percutaneous Endoscopic Approach (ICD-10-PCS; principal; 2017-01-21 07:32)
DX: C64.1 Malignant neoplasm of right kidney, except renal pelvis (principal); I97.42 Intraoperative hemorrhage and hematoma of a circulatory system organ or structure complicating other procedure; I10 Essential (primary) hypertension; E78.5 Hyperlipidemia, unspecified; K66.0 Peritoneal adhesions (postprocedural) (postinfection); K21.9 Gastro-esophageal reflux disease without esophagitis; R11.0 Nausea; Z80.1 Family history of malignant neoplasm of trachea, bronchus and lung; Z88.7 Allergy status to serum and vaccine; Z96.659 Presence of unspecified artificial knee joint
CPT/HCPCS: 36430; 71010; 76937; 80048; 83735; 84155; 85025; 85027; 85610; 86850; 86900; 86901; 86920; 87641; 88307; 93005; 94150; C9113; J0131; J0690; J1100; J1170; J2250; J2270; J2370; J2405; J2550; J2710; J2765; J3010; J7030; J7040; J7120; P9016; P9047